=== PATIENT | male | born 1950 | race Caucasian/White ===

== ENCOUNTER 2017-03-08 13:50 | Inpatient (IN) | payer BC, OTHER ==
[~2017-03-08] VITALS: Ht 180.3 cm; Wt 73.9 kg
[2017-03-08 13:50] VITALS: BP_SYST 126
[2017-03-08] MEDS ORDERED: HYDROmorphone 1 MG INJ. 1 MG/ML AMPUL IVP ONE ×2 (14:30→16:30)
[2017-03-08] MEDS ORDERED: ONDANSETRON HCL 4 MG/2 ML VIAL IVP ONE (14:30)
[2017-03-08] MEDS ORDERED: KETOROLAC TROMETHAMINE 30 MG VIAL IVP ONE (14:30)
[2017-03-08] MEDS ORDERED: NACL 0.9% 1,000 ML IV ONE (14:30)
[2017-03-08 14:50] LABS: BASOPHILS # (AUTO) 0.2 K/uL (0.0-0.2); BASOPHILS % (AUTO) 1.7 % (0.0-2.0); EOSINOPHILS # (AUTO) 0.1 K/uL (0.0-0.4); EOSINOPHILS % (AUTO) 0.4 % (0.0-4.0); HEMATOCRIT 46.3 % (36-54); HEMOGLOBIN 14.9 g/dL (14.0-18.0); LYMPHOCYTES # (AUTO) 1.8 K/uL (1.0-5.5); LYMPHOCYTES % (AUTO) 13.6 % (20.5-51.5); MEAN CORPUSCULAR HEMOGLOBIN 30 pg (27-31); MEAN CORPUSCULAR HGB CONC 32 % (32-36); MEAN CORPUSCULAR VOLUME 94 fL (79.0-98.0); MONOCYTES # (AUTO) 0.8 K/uL (0.0-1.0); NEUTROPHILS # (AUTO) 10.1 K/uL (1.8-7.7); NEUTROPHILS % (AUTO) 78.3 % (40.0-70.0); PLATELET COUNT (AUTO) 403 K/uL (130-430); RED BLOOD CELL COUNT(AUTO) 4.93 MIL/uL (4.2-6.2); RED CELL DISTRIBUTION WIDTH 14.6 % (9.0-15.0)
[2017-03-08 14:57] LABS: CREATININE 0.97 mg/dL (0.55-1.30); POTASSIUM 4.5 mmol/L (3.5-5.1)
[2017-03-08 15:13] LABS: ALBUMIN 3.9 g/dL (3.4-4.8); TOTAL BILIRUBIN 0.4 mg/dL (0.0-1.0)
[2017-03-08 17:02] LABS: BILIRUBIN,URINE NEGATIVE (NEGATIVE); BLOOD, URINE 3+ (NEGATIVE); CLARITY/URINE CLEAR (CLEAR); COLOR,URINE YELLOW (YELLOW); GLUCOSE,URINE 2+ (NEGATIVE); KETONES,URINE 1+ (NEGATIVE); LEUKOCYTE ESTERASE ,URINE NEGATIVE (NEGATIVE); NITRITE, URINE NEGATIVE (NEGATIVE); PROTEIN URINE TRACE (NEGATIVE); UROBILINOGEN,URINE 0.2 (0.2-1.0)
[2017-03-08 17:28] LABS: RBC,URINE >100 /HPF (0-3)
[2017-03-08 17:29] LABS: BACTERIA,URINE MODERATE /HPF (None Seen); FINE GRANULAR CASTS,URINE 0-1 /LPF (None Seen); MUCUS,URINE 1+ /LPF (None Seen)
[2017-03-08] MEDS ORDERED: Antibiotic PO (17:55)
[2017-03-08] MEDS ORDERED: GLIM4TAB PO (17:55)
[2017-03-08] MEDS ORDERED: GLU500 PO (17:55)
[2017-03-08] MEDS ORDERED: ONDANSETRON HCL 4 MG/2 ML VIAL IVP PRN (18:30)
[2017-03-08] MEDS ORDERED: MORPHINE 4 MG/ML INJ. SYRINGE IVP PRN (18:30)
[2017-03-08] MEDS ORDERED: DEXTROSE 50% JECT 50 ML DISP.SYRIN IVP PRN (18:30)
[2017-03-08] MEDS ORDERED: ACETAMINOPHEN 325 MG TABLET PO PRN (18:30)
[2017-03-08] MEDS ORDERED: INSULIN REGULAR, HUMAN 100 UNITS/ML, 10 ML VIAL (novoLIN R) SUBCUT PRN (18:30)
[2017-03-08 20:58] VITALS: BP_SYST 120
[2017-03-08] MEDS ORDERED: cefTRIAXone 1 GM IVPB PREMIX 50 ML IV SCH (21:00)
[2017-03-08] MEDS ORDERED: cefTRIAXone 1 GM IVPB PREMIX 50 ML IV ONE (21:18)
[2017-03-08] MEDS: NACL 0.9% 1,000 ML IV SCH ×2 (21:22→23:45)
[2017-03-08] MEDS: MORPHINE 2 MG/ML INJ. SYRINGE IVP PRN (21:22)
[2017-03-09 01:21] VITALS: BP_SYST 115
[2017-03-09] MEDS: NACL 0.9% 1,000 ML IV SCH ×2 (03:07→11:41)
[2017-03-09] MEDS: MORPHINE 2 MG/ML INJ. SYRINGE IVP PRN ×2 (03:16→11:40)
[2017-03-09 08:00] VITALS: BP_SYST 131
[2017-03-09] MEDS ORDERED: TAMSULOSIN HCL 0.4 MG CAP PO SCH (09:00)
[2017-03-09 11:57] VITALS: BP_SYST 112
== END 2017-03-09 13:30 | disposition left against medical advice (07) | DRG 694 ==
LOC: SED 13:50 → STU 15:57 → SMU 18:10
PROVIDERS: ADMIT Internal Medicine Hospice and Palliative Medicine; ATTEND Internal Medicine Hospice and Palliative Medicine
DX: N13.2 Hydronephrosis with renal and ureteral calculous obstruction (principal); E11.9 Type 2 diabetes mellitus without complications; N39.0 Urinary tract infection, site not specified; I10 Essential (primary) hypertension; Z53.21 Procedure and treatment not carried out due to patient leaving prior to being seen by health care provider; N28.1 Cyst of kidney, acquired
CPT/HCPCS: 36415; 80053; 81000-TC; 82962; 83605; 85025; 87040-TC; 87086; 96365; 96375; 96376; 99285; J0696; J1170; J1815; J1885; J1956; J2270; J2405; J7030